=== PATIENT | male | born 1960 | race Caucasian/White ===

== ENCOUNTER 2016-12-12 10:09 | Day surgery (SDCO) | payer OTHER ==
[~2016-12-12 10:09] MED LIST: ANTIVERT25 MG PO; ASPIRIN CHEWABL81 MG PO; BACLOFEN 10MG T10 MG PO; BACTRIM DS TAB1 EACH PO; FEOSOL325 MG PO; LACTINEX1 EACH PO; MOBIC15 MG PO; PERCOCET 10/321 EACH PO; XARELTO10 MG PO
[2016-12-12 10:32] LABS: BASOPHIL 0.5 % (0-2); EOSINOPHIL 2.7 % (0-5); HGB 15.2 g/dl (13.2-18.0); LYMPHOCYTE 23.4 % (15-48); MCH 32.4 pg (25.0-31.0); MCHC 33.8 g/dL (32.0-36.0); MCV 95.9 fL (78.0-100.0); MONOCYTE 11.4 % (0-12); MPV 10.1 fL (6.0-9.5); PLT 245 K/uL (150-400); RBC 4.69 M/uL (4.70-6.00); RDW 12.8 % (11.5-14.0); WBC 7.8 K/uL (4.0-10.5)
[2016-12-12 10:43] LABS: INR 1.04 (0.9-1.2); PROTHROMBIN TIME 13.2 SECONDS (11.7-14.0); PTT 23.9 SECONDS (23.2-31.4)
[2016-12-12 10:53] LABS: ALBUMIN 4.2 g/dL (3.5-5.0); CREATININE 0.8 mg/dL (0.7-1.2); GLOBULIN (CALCULATION) 3.4 g/dL (2.2-4.2); MAGNESIUM 1.85 mg/dL (1.40-2.10); MYOGLOBIN 42 ng/mL (26-65); POTASSIUM 3.9 mmol/L (3.5-5.1); PRO-BNP 48 pg/mL (0-125); TOTAL PROTEIN 7.6 g/dL (6.4-8.3); TROPONIN T < 0.010 ng/mL
[2016-12-12 14:26] LABS: BILIRUBIN NEGATIVE (NEGATIVE); BLOOD NEGATIVE Ery/uL (NEGATIVE); CLARITY CLEAR (CLEAR); COLOR YELLOW (YELLOW); GLUCOSE (U) NORMAL (NORMAL); KETONE (U) NEGATIVE (NEGATIVE); LEUKOCYTES NEGATIVE Leu/uL (NEGATIVE); NITRITE NEGATIVE (NEGATIVE); PROTEIN NEGATIVE (NEGATIVE); SPECIFIC GRAVITY 1.015 (1.001-1.030); UROBILINOGEN 0.2 mg/dL (0.2-1.0); pH 7.5 (5.0-9.0)
[2016-12-12 14:38] LABS: AMPHETAMINES NEGATIVE (NEGATIVE); BENZODIAZEPINES NEGATIVE (NEGATIVE); COCAINE NEGATIVE (NEGATIVE)
[2016-12-12 14:39] LABS: BARBITURATES NEGATIVE (NEGATIVE); MARIJUANA (THC) POSITIVE (NEGATIVE); METHADONE NEGATIVE (NEGATIVE); TRICYCLIC ANTIDEPRESSANT NEGATIVE (NEGATIVE)
[2016-12-12 17:02] LABS: CKMB 3.27 ng/mL (0.97-4.94); TROPONIN T < 0.010 ng/mL
[2016-12-12 22:51] LABS: CKMB 2.99 ng/mL (0.97-4.94); TROPONIN T < 0.010 ng/mL
[2016-12-13 05:06] LABS: CREATININE 0.9 mg/dL (0.7-1.2)
[2016-12-13 06:52] LABS: BASOPHIL 0.6 % (0-2); EOSINOPHIL 3.8 % (0-5); HCT 42.9 % (42.0-52.0); HGB 14.7 g/dl (13.2-18.0); LYMPHOCYTE 39.9 % (15-48); MCH 33.1 pg (25.0-31.0); MCHC 34.3 g/dL (32.0-36.0); MCV 96.6 fL (78.0-100.0); MONOCYTE 9.4 % (0-12); MPV 9.9 fL (6.0-9.5); NEUTROPHIL 46.3 % (41-80); PLT 232 K/uL (150-400); RBC 4.44 M/uL (4.70-6.00); WBC 8.2 K/uL (4.0-10.5)
== END 2016-12-13 12:30 | disposition other institution (70) ==
LOC: FER 10:09 → FTCU 11:10
PROVIDERS: Emergency Medicine; ADMIT Internal Medicine
DX: I25.110 Atherosclerotic heart disease of native coronary artery with unstable angina pectoris (principal); I10 Essential (primary) hypertension; E78.5 Hyperlipidemia, unspecified; M19.90 Unspecified osteoarthritis, unspecified site; F41.9 Anxiety disorder, unspecified; Z95.1 Presence of aortocoronary bypass graft; Z86.73 Personal history of transient ischemic attack (TIA), and cerebral infarction without residual deficits; Z87.891 Personal history of nicotine dependence; Z82.49 Family history of ischemic heart disease and other diseases of the circulatory system; Z82.3 Family history of stroke; Z80.3 Family history of malignant neoplasm of breast; Z79.1 Long term (current) use of non-steroidal anti-inflammatories (NSAID); Z79.899 Other long term (current) drug therapy
CPT/HCPCS: 36415; 71010; 80048; 80053; 80305; 81003; 82550; 82553; 83735; 83874; 83880; 84484; 85025; 85610; 85730; 93005; G0378

== ENCOUNTER 2021-03-23 20:11 | Emergency (ER) | payer MEDICARE ==
[~2021-03-23 20:11] MED LIST changes: +NAPROXEN500 MG PO; +PERCOCET 5-3251 EACH PO; +antibiotic
[2021-03-23 20:52] LABS: BASOPHIL 1.1 % (0-2); EOSINOPHIL 4.6 % (0-5); HCT 43.8 % (42.0-52.0); HGB 14.5 g/dl (13.2-18.0); LYMPHOCYTE 39.9 % (15-48); MCH 33.2 pg (25.0-31.0); MCHC 33.1 g/dL (32.0-36.0); MCV 100.2 fL (78.0-100.0); NRBC 0; PLT 296 K/uL (150-400); RBC 4.37 M/uL (4.70-6.00); RDW 13.8 % (11.5-14.0); WBC 8.5 K/uL (4.0-10.5)
[2021-03-23 21:14] LABS: LACTIC ACID 2.7 mmol/L (0.4-1.9)
[2021-03-23 21:22] LABS: ALBUMIN 3.4 g/dL (3.4-5.0); BILIRUBIN - TOTAL 0.2 mg/dL (0.2-1.0); BUN/CREAT RATIO (CALC) 20.2 RATIO; CREATININE 0.89 mg/dL (0.67-1.17); GLOBULIN (CALCULATION) 4.6 g/dL; POTASSIUM 3.8 mmol/L (3.5-5.1); PRO-BNP 157 pg/mL (<125)
[2021-03-23 21:48] LABS: INR 1.03 (0.9-1.2); PROTHROMBIN TIME 12.9 SECONDS (11.8-13.4); PTT 24.8 SECONDS (24.4-34.7)
== END 2021-03-24 03:54 | disposition home or self-care (01) ==
LOC: FER 20:11
PROVIDERS: Emergency Medicine Emergency Medical Services
DX: R07.89 Other chest pain (principal); R06.02 Shortness of breath; I25.810 Atherosclerosis of coronary artery bypass graft(s) without angina pectoris; F17.210 Nicotine dependence, cigarettes, uncomplicated; Z79.899 Other long term (current) drug therapy
CPT/HCPCS: 36415; 71045; 80053; 83605; 83690; 83880; 84145; 84484; 85025; 85379; 85610; 85730; 87040; 93005; J1170; J1885; J2270; J2405

== ENCOUNTER 2021-09-16 10:02 | Emergency (ER) | payer MEDICARE ==
[2021-09-16 10:31] LABS: BASOPHIL 0.8 % (0-2); EOSINOPHIL 4.4 % (0-5); HCT 42.7 % (42.0-52.0); HGB 14.2 g/dl (13.2-18.0); LYMPHOCYTE 30.1 % (15-48); MCH 33.7 pg (25.0-31.0); MCHC 33.3 g/dL (32.0-36.0); MCV 101.4 fL (78.0-100.0); MONOCYTE 5.8 % (0-12); MPV 9.9 fL (6.0-9.5); NEUTROPHIL 58.5 % (41-80); NRBC 0; PLT 280 K/uL (150-400); RBC 4.21 M/uL (4.70-6.00); RDW 13.3 % (11.5-14.0); WBC 11.8 K/uL (4.0-10.5)
[2021-09-16 11:01] LABS: ALBUMIN 3.3 g/dL (3.4-5.0); BILIRUBIN - TOTAL 0.4 mg/dL (0.2-1.0); CREATININE 0.73 mg/dL (0.67-1.17); GLOBULIN (CALCULATION) 4.1 g/dL; POTASSIUM 3.8 mmol/L (3.5-5.1); TOTAL PROTEIN 7.4 g/dL (6.4-8.2)
[2021-09-16 11:31] LABS: INR 1.18 (0.9-1.2); PROTHROMBIN TIME 14.4 SECONDS (11.8-13.4); PTT 25.4 SECONDS (24.4-34.7)
[2021-09-16 11:57] LABS: MAGNESIUM 1.8 mg/dL (1.8-2.4)
[2021-09-16 14:14] LABS: BILIRUBIN NEGATIVE (NEGATIVE); BLOOD NEGATIVE Ery/uL (NEGATIVE); CLARITY CLEAR (CLEAR); COLOR YELLOW (YELLOW); GLUCOSE (U) NORMAL (NORMAL); LEUKOCYTES NEGATIVE Leu/uL (NEGATIVE); NITRITE NEGATIVE (NEGATIVE); PROTEIN NEGATIVE (NEGATIVE); UROBILINOGEN 0.2 mg/dL (0.2-1.0)
== END 2021-09-16 17:09 | disposition home or self-care (01) ==
LOC: FER 10:02
PROVIDERS: Emergency Medicine
DX: S01.01XA Laceration without foreign body of scalp, initial encounter (principal); S51.012A Laceration without foreign body of left elbow, initial encounter; S00.93XA Contusion of unspecified part of head, initial encounter; S00.81XA Abrasion of other part of head, initial encounter; M25.552 Pain in left hip; R55 Syncope and collapse; W19.XXXA Unspecified fall, initial encounter; Y93.01 Activity, walking, marching and hiking; Y92.009 Unspecified place in unspecified non-institutional (private) residence as the place of occurrence of the external cause
CPT/HCPCS: 36415; 70450; 72125; 73070; 73502; 80053; 81003; 83735; 84484; 85025; 85610; 85730; 93005; 96365; 96366; 96375; 96376; G0480; J1170; J2405; J3411; J3475; J7030